=== PATIENT | female | born 1985 | race African-American/Black ===

== ENCOUNTER 2020-08-13 19:42 | Emergency (ER) | payer OTHER, SELFPAY ==
[2020-08-13 20:30] VITALS: BP 145/92; PULSE 70; RESP 16; TEMP 36.5; O2SAT 99
--- NOTE | 2020-08-13 21:41 | ED.SKABFB ---
HPI - Skin/Abscess/Foreign Bdy General Chief complaint: Skin/Abscess/Foreign Body Stated complaint: finger infection Time Seen by Provider: 08/13/20 21:41 History of Present Illness HPI narrative: Pain and swelling to the tip of the right third finger for the past 4-5 days. Started on keflex yesterday, but continues to get worse. No trauma. No systemic symptoms. Related Data Allergies Allergy/AdvReac Type Severity Reaction Status Date / Time No Known Allergies Allergy Unverified 07/03/16 08:37 Review of Systems Review of Systems: All systems reviewed & are unremarkable except as noted in HPI and below Constitutional: Constitutional: Denies chills, Denies fever(s) and Denies weakness Cardiovascular: Cardiovascular: Denies chest pain Respiratory: Respiratory: Denies dyspnea Musculoskeletal: Musculoskeletal: Denies myalgias and Denies arthralgias Neurologic: Reports system reviewed and no additional complaints, except as documented PMFSH Past Medical History Medical History (Updated 08/22/20 @ 19:06 by Camron Granados MD) Fracture of proximal phalanx of left hand Social History Social History Smoking status: Current every day smoker Alcohol intake: never Exam Const: General: healthy appearing, no acute distress and alert Nutritional Appearance: well nourished Orientation/consciousness: patient oriented x3 HENMT: Head: normal to inspection Neck: Neck: normal visual inspection Resp: Effort & Inspection: normal respiratory effort Cardio: Other: 2 + right radial. Brisk capillary refill Skin: Other: mild erythema to distal third finger Neuro: General: patient oriented x3 Speech: normal speech Gait exam (Neuro): Normal gait present Extrem: Other: Tense swelling to right third finger, Large paronychia Course Vital Signs Vital signs: Vital Signs Temperature 36.5 C 08/13/20 20:30 Pulse Rate 70 08/13/20 20:30 Respiratory Rate 16 08/13/20 20:30 Blood Pressure 145/92 H 08/13/20 20:30 Pulse Oximetry 99 08/13/20 20:30 Temperature 36.8 C 08/13/20 22:50 Pulse Rate 63 08/13/20 22:50 Respiratory Rate 14 08/13/20 22:50 Blood Pressure 148/98 H 08/13/20 22:50 Pulse Oximetry 99 08/13/20 22:50 Procedures Abscess I/D hand: Side (if applicable): right (third finger) Local Anesthetic: none Technique: needle aspiration Amount of fluid expressed (mL): 1 Irrigation: No Packing used?: none I&D Results: Pus Discharge Plan Discharge Clinical Impression: Paronychia of finger of right hand Patient Disposition: Home, Self-Care Condition: Stable Instructions: Antibiotic Form, Paronychia (ED) Prescriptions: New sulfamethoxazole-trimethoprim [Bactrim DS] 800-160 mg tablet 1 tablet PO Q12H Qty: 14 RF: 0 hydrocodone-acetaminophen 5-325 mg tablet 1 tablet PO Q6H PRN (Reason: pain) Qty: 3 RF: 0 Follow-up/Referrals: PHYSICIAN,INSULATION WORKER [employer] [Primary Care Provider] - Abraham Win MD [Physician] -
[2020-08-13] MEDS: IBUPROFEN 600 MG TABLET PO (22:06)
[2020-08-13] MEDS: HYDROcodone/acetaminophen (*CRX) 5-325 MG TABLET 1 TAB PO (22:06)
[2020-08-13 22:36] VITALS: TEMP 36.5
[2020-08-13 22:50] VITALS: BP 148/98; PULSE 63; RESP 14; TEMP 36.8; O2SAT 99
== END 2020-08-13 22:52 | disposition home or self-care (01) ==
PROVIDERS: Emergency Provider Emergency Medicine
DX: L03.011 Cellulitis of right finger (principal); F17.200 Nicotine dependence, unspecified, uncomplicated
CPT/HCPCS: 10160; 99283; A9270

== ENCOUNTER 2020-10-10 13:43 | Emergency (ER) | payer OTHER, SELFPAY ==
--- NOTE | ~2020-10-10 | XR_ITS ---
EXAMINATION: XR chest 2V DATE: 10/10/2020 14:38 INDICATION: Weakness. Chills. Cough. TECHNIQUE: Frontal and lateral views of the chest were obtained. COMPARISON: None. FINDINGS: The chest demonstrates clear lungs without pneumonia, pleural effusion, or pneumothorax. Th e heart size is normal. IMPRESSION: 1. No acute cardiopulmonary disease. Reviewed, dictated and finalized at location A.
[2020-10-10 14:21] VITALS: BP 109/51; PULSE 77; RESP 16; TEMP 36.7; O2SAT 100
[2020-10-10 14:42] LABS: Basophils Percent Auto 0.2 % (0.2-1.2); Eosinophils Percent Auto 0.5 % (0-4.4); Hematocrit 33.6 % (37.0-47.0); Hemoglobin 10.4 g/dL (12.0-15.0); Immature Granulocyte Absolute 0.01 K/mm3 (0.00-0.031); Immature Granulocyte Percent A 0.2 % (0-0.5); Lymphocytes Absolute Auto 0.36 K/mm3 (0.9-3.2); Lymphocytes Percent Auto 5.7 % (18.3-44.2); Mean Corpuscular Hemoglobin 24.8 pg (26-34); Mean Corpuscular Volume 80.2 fl (80-100); Mean Platelet Volume 9.9 fl (7.4-10.4); Monocytes Absolute Auto 0.6 K/mm3 (0.1-0.6); Monocytes Percent Auto 8.7 % (2.6-8.5); Neutrophils Absolute Auto 5.3 K/mm3 (1.3-6.7); Neutrophils Percent Auto 84.7 % (45.5-73.1); Platelet Count Result 267 k/mm3 (150-375); Red Blood Count 4.19 M/mm3 (4.2-5.4); Red Cell Distribution Width 13.5 % (11.5-14.5); White Blood Count 6.3 K/mm3 (4.5-10.0)
[2020-10-10 15:07] LABS: Alanine Aminotransferase 26 U/L (4-35); Albumin Level 3.9 g/dL (3.5-5.1); Alkaline Phosphatase 52 U/L (38-126); Anion Gap 7 mmol/L (8-16); Aspartate Amino Transferase 46 U/L (14-36); Bilirubin,Total 0.2 mg/dL (0.2-1.3); Blood Urea Nitrogen 7 mg/dL (7-17); Calcium 8.5 mg/dL (8.4-10.2); Carbon Dioxide 25 mmol/L (22-30); Chloride 107 mmol/L (98-107); Estimated CRCL calculation 86 ml/min; Estimated Glomerular Filt Rate > 60; Glucose 104 mg/dL (65-105); Sodium 139 mmol/L (137-145)
[2020-10-10 15:50] LABS: Potassium 3.8 mmol/L (3.4-5.0)
[2020-10-10 17:08] VITALS: BP 124/71; PULSE 71; RESP 15; O2SAT 100
[2020-10-10] MEDS: SODIUM CHLORIDE 0.9% IV 1,000 ML 999 ML IV CONT (17:41)
[2020-10-10] MEDS: KETOROLAC 30 MG/ML VIAL (*BKC) IV PUSH (17:41)
--- NOTE | 2020-10-10 17:41 | ED.GENADULT ---
HPI - General Adult General Chief complaint: Unspecified Stated complaint: bodyaches, chills, rectal bleeding Time Seen by Provider: 10/10/20 17:09 History of Present Illness HPI narrative: Patient is a 34-year-old female who presents to the ER with feeling ill. Reports today she started having chills and she has been having body aches. She then had 3 episodes of diarrhea 1 of which looks like it had blood in it. She reports when she wiped it was pink in the toilet was filled with pink as well. She is on no blood thinners. She reports history of chronic anemia and she does not take any iron. She is scheduled to follow-up with her primary care doctor this month for routine health visit. No known sick contacts. Related Data Allergies Allergy/AdvReac Type Severity Reaction Status Date / Time No Known Allergies Allergy Verified 10/10/20 17:40 Review of Systems Review of Systems: All systems reviewed & are unremarkable except as noted in HPI and below Constitutional: Constitutional: Reports chills, Denies fever(s) and Denies night sweats Gastrointestinal: Gastrointestinal: Denies abdominal pain, Reports diarrhea, Denies nausea and Denies vomiting Comments: rectal bleeding Genitourinary: Genitourinary: Denies nocturia, Denies dysuria and Denies flank pain PMFSH Past Medical History Medical History (Updated 10/10/20 @ 17:47 by Kvng Hatch MD) Anemia Fracture of proximal phalanx of left hand Surgical History Surgical History (Updated 10/10/20 @ 17:45 by Kvng Hatch MD) No pertinent past surgical history Social History Social History Smoking status: Current every day smoker Alcohol intake: never Exam Narrative: Exam Narrative: GENERAL: Well-appearing, well-nourished, and in no acute distress. HEAD: Normocephalic, atraumatic. ENT: Mucous membranes moist. CHEST: Clear to auscultation. No respiratory distress. HEART: Regular rate and rhythm. Normal peripheral pulses. ABDOMEN: Soft, nontender, nondistended, rectal deferred by patient. EXTREMITIES: Normal range of motion. No edema. SKIN: Warm, dry, no rash. NEURO: Alert and oriented x3. Course Course Emergency Course: Patient looks well. Declines rectal exam for further evaluation of bleeding. She did have a photo on her phone which appeared to show a loose mostly brown stool that had a pinkish hue to it. Suspect she has a gastrointestinal illness that would be transient that is also causing some body aches. Recommend hydration and Toradol here. Discussed return precautions. Patient verbalized understanding. Vital Signs Vital signs: Vital Signs Temperature 98.1 F 10/10/20 14:21 Pulse Rate 77 10/10/20 14:21 Respiratory Rate 16 10/10/20 14:21 Blood Pressure 109/51 L 10/10/20 14:21 Pulse Oximetry 100 10/10/20 14:21 Temperature 98.1 F 10/10/20 14:21 Pulse Rate 71 10/10/20 17:08 Respiratory Rate 15 10/10/20 17:08 Blood Pressure 124/71 10/10/20 17:08 Pulse Oximetry 100 10/10/20 17:08 Medical Decision Making Vital Signs Vital Signs: Vital Signs Temperature 98.1 F 10/10/20 14:21 Pulse Rate 77 10/10/20 14:21 Respiratory Rate 16 10/10/20 14:21 Blood Pressure 109/51 L 10/10/20 14:21 Pulse Oximetry 100 10/10/20 14:21 Temperature 98.1 F 10/10/20 14:21 Pulse Rate 71 10/10/20 17:08 Respiratory Rate 15 10/10/20 17:08 Blood Pressure 124/71 10/10/20 17:08 Pulse Oximetry 100 10/10/20 17:08 Lab Data Result diagrams: 10/10/20 14:32 10/10/20 14:32 Labs: Lab Results 10/10/20 10/10/20 10/10/20 Range/Units 14:32 14:32 17:32 WBC 6.3 (4.5-10.0) K/mm3 RBC 4.19 L (4.2-5.4) M/mm3 Hgb 10.4 L (12.0-15.0) g/dL Hct 33.6 L (37.0-47.0) % MCV 80.2 (80-100) fl MCH 24.8 L (26-34) pg MCHC 31.0 L (32-36) g/dl RDW 13.5 (11.5-14.5) % Plt Count 267 (150-375) k/mm3 MPV 9.9 (7.4-10.4) fl Immature Gran
[2020-10-10 17:42] LABS: Add Urine Microscopic? YES; Appearance Urine Clear (Clear); Bacteria Urine Trace /hpf; Bilirubin Urine Negative (Negative); Blood Urine Negative (Negative); Color Urine Yellow (Yellow); Glucose Urine UA Negative (Negative); Ketones Urine Negative (Negative); Leukocyte Esterase Ur Negative LEU/UL (Negative); Mucus Urine Few /lpf; Nitrate Urine Negative (Negative); Protein Urine 2+ mg/dL (Negative); RBC Urine 0-2 /hpf (0-2); Specific Grav Ur 1.029 (1.001-1.035); Squamous Epithelial Cell Urine Rare /hpf (Few); WBC Urine 0-3 /hpf
[2020-10-10 18:23] VITALS: BP 113/62; PULSE 72; RESP 14; O2SAT 99
== END 2020-10-10 18:25 | disposition home or self-care (01) ==
PROVIDERS: Emergency Medicine; Emergency Provider Emergency Medicine
DX: K52.9 Noninfective gastroenteritis and colitis, unspecified (principal); D64.9 Anemia, unspecified; F17.210 Nicotine dependence, cigarettes, uncomplicated
CPT/HCPCS: 36415; 71046; 80053; 81001; 85025; 96361; 96374; 99284; J1885; J7030